=== PATIENT | male | born 1945 | race Caucasian/White ===

== ENCOUNTER 2023-10-24 10:21 | Outpatient (RCR) | payer OTHER, SELFPAY ==
[2023-10-24 10:40] LABS: % Basophils 1.3 % (0-2); % Eosinophils 3.6 % (0-6); % Immature Granulocytes 0.5 % (0-0.5); % Lymphocytes 7.9 % (20.5-51.1); % Monocytes 5.8 % (1.7-9.3); % Neutrophils 80.9 % (42.2-75.2); Absolute Basophils 0.2 10^3/uL (0-0.2); Absolute Eosinophils 0.4 10^3/uL (0-0.7); Absolute Immature Granulocytes 0.1 10^3/uL (0-0.05); Absolute Monocytes 0.7 10^3/uL (0.1-0.6); Hematocrit 50.6 % (39.0-52.0); Mean Corp Hgb Conc. 29.6 g/dL (33.0-37.0); Mean Corpuscular Hgb 22.5 pg (27.0-31.0); Mean Platelet Volume 10.6 fL (7.4-10.4); Platelet Count 470 10^3/uL (130-400); Red Blood Cell Count 6.66 10^6/uL (4.70-6.10); Red Cell Dist. Width 20.4 % (11.5-14.5); White Blood Cell Count 12.3 10^3/uL (4.8-10.8)
[2023-10-24 10:53] VITALS: BP 129/76
[2023-10-24 11:35] VITALS: BP 138/70
[2023-10-24 12:20] LABS: Iron 32 ug/dl (49-181)
[2023-10-24 12:31] LABS: Percent Saturation 8 % (20-50); Total Iron Binding Capacity 360 ug/dl (261-462)
== END 2023-10-25 09:36 | disposition home or self-care (01) ==
LOC: OID 10:21
PROVIDERS: ATTENDING PHYSICIAN Internal Medicine Hematology & Oncology; FAMILY PHYSICIAN Internal Medicine
DX: D45 Polycythemia vera (principal)
CPT/HCPCS: 36415; 82728; 83540; 83550; 85025

== ENCOUNTER 2024-06-19 10:55 | Outpatient (RCR) | payer OTHER, SELFPAY ==
[2024-06-18 09:51] LABS: % Eosinophils 2.7 % (0-6); % Immature Granulocytes 0.4 % (0-0.5); % Lymphocytes 8.5 % (20.5-51.1); % Monocytes 6.3 % (1.7-9.3); % Neutrophils 81.1 % (42.2-75.2); Absolute Basophils 0.1 10^3/uL (0-0.2); Absolute Eosinophils 0.3 10^3/uL (0-0.7); Absolute Lymphocytes 0.9 10^3/uL (1.2-3.4); Absolute Monocytes 0.7 10^3/uL (0.1-0.6); Absolute Neutrophils 8.6 10^3/uL (1.4-6.5); Hematocrit 55.2 % (39.0-52.0); Hemoglobin 16.1 g/dL (13.0-18.0); Mean Corp Hgb Conc. 29.2 g/dL (33.0-37.0); Mean Corpuscular Hgb 22.9 pg (27.0-31.0); Mean Corpuscular Volume 78.5 fL (80.0-94.0); Mean Platelet Volume 10.9 fL (7.4-10.4); Platelet Count 568 10^3/uL (130-400); Red Blood Cell Count 7.03 10^6/uL (4.70-6.10); Red Cell Dist. Width 19.7 % (11.5-14.5); White Blood Cell Count 10.6 10^3/uL (4.8-10.8)
[2024-06-18 10:51] LABS: Iron 37 ug/dl (49-181)
[2024-06-18 11:03] LABS: Percent Saturation 10 % (20-50); Total Iron Binding Capacity 356 ug/dl (261-462)
[2024-06-18 11:17] LABS: Ferritin 7.5 ng/ml (17.9-464.0)
[2024-06-19 11:19] VITALS: BP 128/77
[2024-06-19 11:51] VITALS: BP 146/87
== END 2024-06-20 08:48 | disposition home or self-care (01) ==
LOC: OID 10:55
PROVIDERS: ATTENDING PHYSICIAN Internal Medicine Hematology & Oncology; FAMILY PHYSICIAN Internal Medicine
DX: D47.2 Monoclonal gammopathy (principal); D45 Polycythemia vera
CPT/HCPCS: 36415; 82728; 83540; 83550; 85025; 99195

== ENCOUNTER → 2024-09-09 09:31 | Outpatient (REF) | payer OTHER, SELFPAY ==
[2024-09-09 10:20] LABS: % Basophils 1.2 % (0-2); % Eosinophils 1.7 % (0-6); % Lymphocytes 8.1 % (20.5-51.1); Absolute Basophils 0.1 10^3/uL (0-0.2); Absolute Eosinophils 0.2 10^3/uL (0-0.7); Absolute Immature Granulocytes 0.1 10^3/uL (0-0.05); Absolute Lymphocytes 0.8 10^3/uL (1.2-3.4); Absolute Monocytes 0.8 10^3/uL (0.1-0.6); Absolute Neutrophils 8.2 10^3/uL (1.4-6.5); Hematocrit 51.7 % (39.0-52.0); Hemoglobin 15.7 g/dL (13.0-18.0); Mean Corp Hgb Conc. 30.4 g/dL (33.0-37.0); Mean Corpuscular Hgb 26.2 pg (27.0-31.0); Mean Corpuscular Volume 86.3 fL (80.0-94.0); Mean Platelet Volume 10.1 fL (7.4-10.4); Nucleated Red Blood Cells % 0 % (-); Platelet Count 481 10^3/uL (130-400); Red Blood Cell Count 5.99 10^6/uL (4.70-6.10); Red Cell Dist. Width 24.3 % (11.5-14.5); White Blood Cell Count 10.2 10^3/uL (4.8-10.8)
[2024-09-09 10:52] LABS: ALT (SGPT) 15 U/L (0-50); AST (SGOT) 20 U/L (17-59); Albumin 4.4 g/dl (3.5-5.0); Alkaline Phosphatase 93 U/L (38-126); Blood Urea Nitrogen 16 mg/dl (9-20); Calcium 9.5 mg/dl (8.4-10.2); Carbon Dioxide 26 mmol/L (22-30); Chloride 101 mmol/L (98-107); Glucose 84 mg/dl (70-99); HDL Cholesterol 30 mg/dl; LDL Cholesterol, Calculated 31 mg/dl; Potassium 4.8 mmol/L (3.5-5.1); Sodium 140 mmol/L (135-145); Total Bilirubin 0.8 mg/dl (0.2-1.3); Total Cholesterol 82 mg/dl (50-199); Total Protein 6.7 g/dl (6.3-8.2); Triglyceride 107 mg/dl (10-149); Very Low Density Lipoprotein 21 mg/dl (0-30); eGFR > 60.00
[2024-09-09 10:53] LABS: Acanthocytes FEW; Anisocytosis 1+; Hypochromasia 1+; Normal RBC Morphology No; Ovalocytes 1+; Polychromasia 1+
[2024-09-09 11:18] LABS: TSH 5.51 uIU/ml (0.47-4.68)
[2024-09-11 00:39] LABS: PSA Total 0.9 ng/mL (0.0-4.0)
== END ==
LOC: REG 09:31
PROVIDERS: ATTENDING PHYSICIAN Internal Medicine
DX: R94.6 Abnormal results of thyroid function studies (principal); E78.5 Hyperlipidemia, unspecified; N40.1 Benign prostatic hyperplasia with lower urinary tract symptoms
CPT/HCPCS: 36415; 80053; 80061; 84153; 84154; 84443; 85025

== ENCOUNTER 2025-01-30 08:57 | Inpatient (IN) | payer OTHER, SELFPAY ==
[2025-01-28] VITALS (11 sets, daily range): BP systolic 117–145; BP diastolic 62–77; BMI 31.7
--- NOTE | 2025-01-28 12:37 | ED.GENMED ---
History of Present Illness
General
Chief Complaint: Weakness
Source: patient and spouse
Exam Limitations: none
Time Seen by Provider: 01/28/25 12:18
History of Present Illness
History of Present Illness:
79yoM with a history of prior CVA with residual R sided weakness, hypertension, hyperlipidemia, polycythemia vera, and obesity presenting with his for evaluation of weakness. Patient reports a gradual worsening of his weakness over the past
several weeks. Patient fell today due to his weakness. Both patient and deny any head strike or loss of consciousness. He was unable to get up after the fall and EMS was activated. reports that he was very shaky and felt warm this
morning. His urine also appears cloudy. He denies any fevers, chills, vomiting, diarrhea, chest pain, shortness of breath.
Past History
Past History
ED Past Medical History: Cancer (Basal cell skin cancer), CVA (with right sided weakness, Brace on the lower legs), HTN, Hypercholesterolemia, Psychiatric (Depression) and Other (Sleep apnea, PNA, UTI, Macular degeneration. Polycythemia Vera)
ED Past Surgical History: Tonsilectomy, Urological (TURP) and Other (Cataracts)
Social History
Tobacco: Former smoker
Alcohol: Daily (Scotch 1 glass)
Drug: None
Personal:
Living: with family
Employment: Retired
Family History
Family History: Other
Phy Exam
Physical Exam
Physical Exam:
Chronically ill appearing, non-toxic
General Physical Exam
General Presentation: no apparent distress
General Skin: warm and dry
General Habitus: normal
ENT Exam
ENT Exam: normocephalic
Cardiovascular Exam
Cardiovascular Exam: regular rate/rhythm
Pulmonary Exam
Pulmonary Exam: lungs clear, no respiratory distress, no rales, no crackles, no rhonchi and no wheezing
Gastrointestinal Exam
Gastrointestinal Exam: non tender, soft and non distended
Neurological Exam
Neurological Exam: alert
Xenia Coma Scale
Eye Opening: Spontaneous
Verbal Response: Oriented
Motor Response: Obeys Commands
GCS Total Score: 15
Skin Exam
Skin Exam: warm/dry and other (Fungal rash noted beneath breasts bilaterally)
Psychiatric Exam
Psychiatric Exam: normal mood/affect
Course
Orders/Labs/Results
Orders:
Orders
01/28/25 12:31
Electrocardiogram (*1) Urgent
Reason for Study: Bradycardia / Tachycardia
EKG- Treatment ONCE
01/28/25 12:32
Basic Metabolic Panel Urgent
Complete Blood Count/With Diff Urgent
Total CK [Creatine Phosphokinase] Urgent
Troponin I Urgent
01/28/25 12:36
CR Chest - 2 Views Urgent
Comment:
Reason For Exam: hypoxia
01/28/25 12:46
COVID-19 Antigen Urgent
Source: Nasal Swab
Influenza A+B Rapid Molecular Urgent
WILLIAM Source: Nasal Swab
Specimen Description:
01/28/25 14:10
LFT [Dzurd-Bgth-Pyqzbrd] Urgent
Potassium Urgent
01/28/25 14:19
0.9% Sodium Chloride 1000 ml [Nss] 1,000 ml IV BOLUS
01/28/25 15:19
Straight cath- Treatment ONCE
01/28/25 16:01
Urinalysis Reflex To Culture Urgent
Date Specimen was Collected: 01/28/25
Time Specimen was Collected: 12:31
Urine Microscopic Reflex Cult Urgent
Urine Culture Urgent
WILLIAM Source: U
Specimen Description:
Date Specimen was Collected: 01/28/25
Time Specimen was Collected: 12:31
01/28/25 16:25
Admit/Transfer Patient As Directed
Co-Sign Provider:
Level of Care: Observation services
Assign to:: Telemetry
Physician / Group: Hospitalist
Diagnosis: Weakness, Hypoxia
Reason for Telemetry: Other
Other Reason for Telemetry: HYpoxia
Date to Stop Telemetry: 01/30/25
Time to Stop Telemetry: 11:00
PRN Pain Medication Management As Directed
May give lesser potent ordered pain med per pt: Yes
preference::
Protocol:: Medication orders for pain may be administered in a
manner that supports deferring to patient preference
when the pt is:
- Requesting an ordered lesser potent pain medication.
Least to most potent pain medications are defined
as: acetaminophen < NSAID < tramadol < opioids
(morphine, oxycodone, hydromorphone).
- Requesting a lesser dose of the same medication IF
ORDERED.
- Requesting a less intrusive route of administration
if both routes are prescribed by the provider (PO <
IV).
01/28/25 16:36
CT Chest PE Study Urgent
Comment:
Reason For Exam: hypoxia
01/28/25 16:43
Code Status As Directed
Resuscitation Status: Do not resuscitate
Reached after discussion with pt or family/Healthcare POA: Yes
01/28/25 16:44
DNR Bracelet Application ONCE
01/28/25 16:45
Blood Culture Q30M
WILLIAM Source: Blood/Venous
Specimen Description:
01/28/25 16:46
CR Abdomen - 2 Views Routine
Comment:
Reason For Exam: change in bowel habits
01/28/25 17:15
Blood Culture Q30M
WILLIAM Source: Blood/Venous
Specimen Description:
01/30/25 11:00
DC Protocol for Telemetry ONCE
Abnormal Lab Results
01/28/25 01/28/25
12:32 16:01
WBC 15.4 H 10^3/uL
(4.8-10.8)
Hct 53.8 H %
(39.0-52.0)
MCV 97.6 H fL
(80.0-94.0)
MCH 31.4 H pg
(27.0-31.0)
MCHC 32.2 L g/dL
(33.0-37.0)
RDW 19.4 H %
(11.5-14.5)
Plt Count 420 H 10^3/uL
(130-400)
MPV 10.7 H fL
(7.4-10.4)
Abs Immat Gran (auto) 0.1 H 10^3/uL
(0-0.05)
Absolute Neuts (auto) 14.0 H 10^3/uL
(1.4-6.5)
Absolute Lymphs (auto) 0.4 L 10^3/uL
(1.2-3.4)
Absolute Monos (auto) 0.7 H 10^3/uL
(0.1-0.6)
Immature Gran % 0.8 H %
(0-0.5)
Neutrophils % 91.3 H %
(42.2-75.2)
Lymphocytes % 2.5 L %
(20.5-51.1)
Glucose 119 H mg/dl
(70-99)
Creatine Kinase 27 L U/L
(55-170)
Ur Occult Blood Reflex 4+ A
(Negative)
Urine Nitrite (Reflex) Positive A
(Negative)
Leukocyte Esterase Rfl 3+ A
(Negative)
Urine RBC 3-6 A /HPF
(0-2)
Urine WBC (Reflex) >100 A /HPF
(0-5)
Urine Bacteria (Reflex) Many A
(Negative)
Urine Albumin (Reflex) 2+ A
(Neg - Trace)
01/28/25 12:32
01/28/25 14:10
Vital Signs
Initial and Last Documented VS:
Initial Vital Signs
Temp Pulse Resp BP Pulse Ox
99.4 F 63 18 128/68 95
01/28/25 10:41 01/28/25 10:41 01/28/25 10:41 01/28/25 10:41 01/28/25 10:41
Last Documented Vital Signs
Temp Pulse Resp BP Pulse Ox
99.4 F 77 31 120/63 95
01/28/25 10:41 01/28/25 18:15 01/28/25 12:30 01/28/25 18:00 01/28/25 18:15
MDM/Problems Addressed
Differential Diagnosis Includes:
79yoM here with generalized weakness. Had a fall earlier today. Also reports feeling shaky with cloudy urine. Hx of CVA with R sided hemiparesis. Triage vital signs normal. He is chronically ill appearing but non-toxic. Differential diagnosis
includes but is not limited to: failure to thrive, UTI, dehydration, ambulatory dysfunction
Initial ED plan: Check cardiac labs, EKG, COVID/flu swab, UA, and CXR.
*Pulse Oximetry
SaO2: 91
Oxygen Mode of Delivery: Room air
Patient hypoxic: yes (88)
*EKG
Interpreted by ED Provider?: Yes
EKG Intrepretation Date: 01/28/25
Heart Rate: 101
Rate: tachycardiac
Rhythm: sinus and PAC's
[place]: normal axis
QRS Pattern: low voltage
Ischemia: no ischemia
*Critical Care Note
Total Time (30-74mins, 75-104mins- exclusive of procedures): Not Applicable
Update Note
Update Note:
Labs reveal a WBC of 15. Patient hypoxic during ED stay with oxygen saturations in the mid-high 80s. Patient placed on NC although he denies feeling dyspneic. CXR is clear. No ischemic changes on EKG and troponin WNL. High suspicion for UTI although
urinalysis is pending. Will admit for further evaluation.
ED Attending Note
-
Portions of this chart may have been created with voice recognition software.� Occasional wrong word or��sound alike� substitutions may have occurred due to the inherent limitations of voice recognition software.
Discharge Plan
Departure
Patient Disposition: Admit
Date of Disposition: 01/28/25
Time of Disposition: 14:20
Presentation/result/management discussed w/ accepting MD/DO: Hospitalist
Discharge Problem:
Acute hypoxic respiratory failure, Generalized weakness
Interventions
Interventions:
*Risk Screen - Suicide Last Done: 01/28/25 10:41
*General Assessment Last Done: 01/28/25 10:41
*Neglect/Abuse Screening Last Done: 01/28/25 10:41
*ED COVID-19 Vaccine History Last Done: 01/28/25 12:26
ED- Cardiac Assessment Last Done: 01/28/25 12:26
ED- Neurological Assessment Last Done: 01/28/25 12:26
ED- Pulmonary Assessment Last Done: 01/28/25 12:26
[2025-01-28 12:46] LABS: Hematocrit 53.8 % (39.0-52.0); Hemoglobin 17.3 g/dL (13.0-18.0); Mean Corp Hgb Conc. 32.2 g/dL (33.0-37.0); Mean Corpuscular Volume 97.6 fL (80.0-94.0); Nucleated Red Blood Cells % 0 % (-); Platelet Count 420 10^3/uL (130-400); Red Cell Dist. Width 19.4 % (11.5-14.5)
[2025-01-28 13:18] LABS: Blood Urea Nitrogen 16 mg/dl (9-20); Calcium 9.3 mg/dl (8.4-10.2); Carbon Dioxide 23 mmol/L (22-30); Chloride 107 mmol/L (98-107); Estimated Creatinine Clearance 76 ml/min; Glucose 119 mg/dl (70-99); Sodium 139 mmol/L (135-145); eGFR > 60.00
[2025-01-28 13:25] LABS: COVID-19 Antigen Negative (Negative)
[2025-01-28 13:25] LABS: Troponin I 0.026 ng/ml
[2025-01-28] MEDS: NSS 1000 IV (14:23)
[2025-01-28 15:00] LABS: ALT (SGPT) 16 U/L (0-50); AST (SGOT) 23 U/L (17-59); Albumin 3.8 g/dl (3.5-5.0); Alkaline Phosphatase 85 U/L (38-126); Potassium 4.6 mmol/L (3.5-5.1); Total Protein 6.4 g/dl (6.3-8.2)
--- NOTE | 2025-01-28 15:08 | HPS.HSE ---
Family Physician
-
Family Physician: Jaylyn Hernandez
Chief Complaint
-
Weakness
History of Present Illness
79-year-old male with generalized weakness. He has not walked for the past 1 year .He mostly sits in a recliner gets onto a wheelchair and goes to the bathroom with the help of his . She stated that he has had a few falls recently. Paramedics
were called and they picked him up. Today also same thing happened but he was very weak afterwards they had to call them back to bring him to the hospital. Patient also has a lot of fungal infection in the folds has off-and-on constipation and
diarrhea... He had a fever of 101 at home no chest pain. No diarrhea right now.
Medical History
Past Medical History
Past Medical History: Reports Other
Additional Past Medical History:
History of CVA, sleep apnea-CPAP intolerant, hypertension, hyperlipidemia, enlarged prostate, ambulatory dysfunction, arthritis, cataracts, hearing impairment, macular degeneration, polycythemia, depression
Past Surgical History: Reports Other
Additional Past Surgical History:
Tonsillectomy, TURP, cataract surgery, Mohs surgery head
Social History
Tobacco: Former Smoker
Alcohol: Daily (1 glass of scotch every day)
Drug: None
Personal:
Living: With Family
Family History
Family History: Not pertinent
Allergies / Home Medications
Allergies reflects when Allergies were last updated in [facility].
Home Medications with original date entered in [facility]
Allergy/Medication List:
Allergies
Allergy/AdvReac Type Severity Reaction Status Date / Time
Influenza Virus Vaccines Allergy Unknown Pharmacy Verified 01/28/25 10:45
to
Review,chills
and fever
lisinopril Allergy Unknown Verified 01/28/25 10:45
Home Medications
calcium polycarbophil 625 mg tablet (Fiber-Tabs) 625 mg PO BID Constipation 02/27/18
atorvastatin 40 mg tablet 40 mg PO HS High Cholesterol 07/01/18
docusate sodium 100 mg capsule 200 mg PO BID Constipation 09/17/19
hydroxyurea 500 mg capsule 1,000 mg PO HS Autoimmune Disorder 09/17/19
losartan 50 mg tablet 50 mg PO HS Blood Pressure 09/17/19
amlodipine 10 mg tablet 10 mg PO DAILY Blood Pressure 01/28/25
clopidogrel 75 mg tablet 75 mg PO DAILY Heart Disease/Condition 01/28/25
clotrimazole-betamethasone 1 %-0.05 % topical cream 1 applic topical DAILY under breasts,folds,groin 01/28/25
fluoxetine 20 mg capsule 20 mg PO DAILY Mental Health/Anxiety 01/28/25
Review of Systems
-
A 12 point ROS was completed and negative except as noted: Yes
Respiratory: Denies Cough or Trouble Breathing
Cardiac: Denies Chest Pain
Abdomen/GI: Reports Diarrhea and Constipated; Denies Bloody Stools
: Denies Dysuria
Skin: Reports Other (fungal rash folds)
Neurological: Reports Weakness (right side from CVA)
Physical Exam
Vital Signs
Vital Signs
Temp Pulse Resp BP Pulse Ox
99.4 F 95 31 122/64 90
01/28/25 10:41 01/28/25 14:30 01/28/25 12:30 01/28/25 14:00 01/28/25 14:30
Physical Exam
General: Comfortable and Conversant
Respiratory: Clear
Cardiac: S1/S2 and Regular Rhythm
GI: Soft, Non Tender and Normal Bowel Sounds
Skin: Rash (fungal rash axillary folds, breast folds, abdomen fold, inguinal area) and Ulcers (Recent Mohs surgery left posterior scalp)
Neuro: AO x 3; No Nonfocal/grossly intact (Right hemiplegia)
Psych: Calm
Laboratory Results
-
01/28/25 12:32
01/28/25 14:10
Laboratory Results
Total Bilirubin 1.1 mg/dl (0.2-1.3) 01/28/25 14:10
AST 23 U/L (17-59) 01/28/25 14:10
ALT 16 U/L (0-50) 01/28/25 14:10
Alkaline Phosphatase 85 U/L (38-126) 01/28/25 14:10
Troponin I 0.026 ng/ml 01/28/25 12:32
Data Reviewed
-
Diagnostic Radiology: Image Personally Visualized and interpreted (Chest x-ray-no acute changes)
Medical Tests (Nuc Med, Echo, EKG etc): Image Personally Visualized and interpreted (EKG-sinus tachycardia with PACs)
Impression/Plan
-
IMPRESSION/PLAN:
# Generalized weakness
Fever at home , here 99.4
Admit for observation
Check blood cultures
Urinalysis pending
Chest x-ray unremarkable
# Acute hypoxic respiratory insufficiency- Check CTA chest
# Fungal Infection skin folds- Local care and also add Diflucan ,doxycycline for secondary bacterial infection.
# Recent Mohs surgery left posterior scalp-wound care consult
# Hypertension-continue amlodipine, losartan
# History of stroke-continue Plavix, statin
# Enlarged prostate- watch for retention.
# Polycythemia vera last phlebotomy was in June 2024
# Depression-continue fluoxetine
# Sleep apnea-not on CPAP as outpatient
# Nonambulatory for past 1 year, mostly wheelchair-bound/recliner
# Obesity with a BMI of 31
# DVT prophylaxis-Lovenox
# CODE STATUS-patient wants to be DNR.
Discussed with ER
Discussed with at bedside
time over 75 min
[2025-01-28 17:53] LABS: Urine Character Cloudy (Clear)
[2025-01-28 18:06] LABS: Urine Squamous Cell 0-2 /LPF (Few)
[2025-01-28 18:07] LABS: Urine White Cell >100 /HPF (0-5)
--- NOTE | 2025-01-28 18:56 | W.PN.UPDATE ---
Update Note
Progress Note Update
UTI noted-add ceftriaxone
Discontinue doxycycline
Abdomen x-ray NAD
CT PE study NAD. No pneumonia, No PE
--- NOTE | 2025-01-28 20:30 | PTCARENOTE ---
Pt admitted from ED via stretcher. AAOx3. Pt afebrile, VSS. IV site C/D/I. Lungs clear, pt arrived on 2L O2. Pt oriented to room. Bed in lowest position and call neil within reach.
[2025-01-28] MEDS: FIBERCON 625 MG PO (21:01)
[2025-01-28] MEDS: DESENEX/MITRAZOL/ZEASORB 1 APPLIC TOPICAL (21:01)
[2025-01-28] MEDS: DIFLUCAN 100 MG PO (21:01)
[2025-01-28] MEDS: HYDREA 1000 MG PO (21:01)
[2025-01-28] MEDS: COLACE 200 MG PO (21:02)
[2025-01-28] MEDS: LOVENOX 40 MG SC (21:02)
[2025-01-28] MEDS: ROCEPHIN 2000 MG IV (21:03)
[2025-01-28] MEDS: LIPITOR 40 MG PO (21:03)
[2025-01-28] MEDS: COZAAR 50 MG PO (21:03)
[2025-01-28] MEDS: STERILE WATER FOR INJECTION 20 ML IV (21:04)
[2025-01-29 03:17] VITALS: BP 145/74
[2025-01-29 06:16] LABS: Hematocrit 48.6 % (39.0-52.0); Hemoglobin 15.8 g/dL (13.0-18.0); Mean Corp Hgb Conc. 32.5 g/dL (33.0-37.0); Mean Corpuscular Volume 97.8 fL (80.0-94.0); Platelet Count 328 10^3/uL (130-400); Red Cell Dist. Width 19.3 % (11.5-14.5)
[2025-01-29 06:42] LABS: Blood Urea Nitrogen 15 mg/dl (9-20); Calcium 8.7 mg/dl (8.4-10.2); Carbon Dioxide 21 mmol/L (22-30); Chloride 110 mmol/L (98-107); Estimated Creatinine Clearance 86 ml/min; Glucose 88 mg/dl (70-99); Magnesium 2.0 mg/dl (1.6-2.3); Potassium 4.5 mmol/L (3.5-5.1); Sodium 138 mmol/L (135-145); eGFR > 60.00
[2025-01-29 07:30] VITALS: BP 141/78
[2025-01-29 07:30] LABS: Vitamin B12 314 pg/ml (239-931)
[2025-01-29] MEDS: PROZAC 20 MG PO (08:51)
[2025-01-29] MEDS: PLAVIX 75 MG PO (08:53)
[2025-01-29] MEDS: DIFLUCAN 100 MG PO (08:53)
[2025-01-29] MEDS: COLACE 200 MG PO ×2 (08:53→19:27)
[2025-01-29] MEDS: FIBERCON 625 MG PO ×2 (08:53→19:27)
[2025-01-29] MEDS: DESENEX/MITRAZOL/ZEASORB 1 APPLIC TOPICAL ×2 (08:53→19:28)
--- NOTE | 2025-01-29 09:53 | WOUNDNOTE ---
[facility] RN note: Patient admitted with weakness
See H&P for complete history.
PMH: Stroke, sleep apnea, ex-smoker, difficulty with urination, UTI's ambulatory dysfunction.
Wound Location and type/assessment: Patient admitted with fungal appearing skin and MASD to groin, lower abdominal folds, chest and right arm. Right arm also with open blister from fall and large ecchymotic area. Left groin skin is superficially
open due to moisture and pressure from skin folds. Patient describes performing own hygiene daily. He sits in recline or wheel chair with cushion daily. He has right sided weakness. Heels with adhesive foam intact. Patient declined to have sacrum
assessed because he could not tolerate being turned at time of assessment.
Appetite: Good
Pressure redistribution devices in place: Will recommend static air overlay, continue off-loading of heels. Encourage frequent turning and repositioning.
Plan: All wounds cleaned with normal saline and Calazime and antifungal powder applied. Will recommend additional use of antifungal ointment for under breasts and groin/thigh fungal appearing skin. Will confirm with hospitalist. TT hospitalist to
report declining of turning. JONATHAN Burt made aware. Air cushion added to chair if patient transfers to chair today. Updated care plan and will follow as needed.
Note to case management of equipment requested for discharge:
Recommend follow up at wound care center upon discharge.
--- NOTE | 2025-01-29 11:04 | WOUNDNOTE ---
RIGHT AXILLA/UPPER ARM
--- NOTE | 2025-01-29 11:04 | WOUNDNOTE ---
RIGHT AXILLA/UPPER ARM
--- NOTE | 2025-01-29 11:05 | WOUNDNOTE ---
RIGHT AXILLA/UPPER ARM
--- NOTE | 2025-01-29 11:06 | W.PN.HOSP.TC ---
Today's Communication/Plan
-
Continue ceftriaxone
Wound care
PT OT evaluation
Patient may need rehab
Assessment / Plan
Assessment / Plan
CVS: S1-S2 normal
Chest: CTA B/L
Abdomen: Soft, NT / Bowel sounds present
Extremities: No edema
GLOVE [employer]: Right hemiplegia
Skin folds with fungal rash
# Generalized weakness
Fever 101 at home , here 99.4
Check blood cultures-pending
Treat UTI
Chest x-ray/CT chest unremarkable
# Acute hypoxic respiratory insufficiency-no PE or pneumonia on CTA. Change pulse ox to earlobe and wean oxygen as tolerated
# Fungal Infection skin folds- Local care and also Diflucan
# UTI-continue ceftriaxone-wait for cultures
# Recent Mohs surgery left posterior scalp-wound care consult
# Hypertension-continue amlodipine, losartan
# History of stroke -right hemiplegia- continue Plavix, statin
# Enlarged prostate- watch for retention. Patient has off-and-on retention. Start Flomax. Continue bladder scan.
# Polycythemia vera last phlebotomy was in June 2024
# Depression-continue fluoxetine
# Sleep apnea-not on CPAP as outpatient
# Nonambulatory for past 1 year, mostly wheelchair-bound/recliner
# Obesity with a BMI of 31
# DVT prophylaxis-Lovenox
# CODE STATUS-patient wants to be DNR.
D/W RN at bed side
D/W Wound care-patient was not agreeable initially when they came over to see. Patient is now agreeable
Pt and are OK with Rehab. They don't want Mino.
Discussed with in detail and updated
Anticipated Discharge: 24 - 48 hours
Subjective/Interval History
-
Date of Service: January 29, 2025
Objective Data
-
Labs:
Laboratory Results
01/29/25
05:43
WBC 9.6
Hgb 15.8
Hct 48.6
Plt Count 328 D
Sodium 138
Potassium 4.5
Chloride 110 H
Carbon Dioxide 21 L
BUN 15
Creatinine 0.8
Glucose 88
Calcium 8.7
Vital Signs:
Vital Signs
Temp Pulse Resp BP Pulse Ox
97.5 F 78 18 141/78 95
01/29/25 07:30 01/29/25 07:30 01/29/25 07:30 01/29/25 07:30 01/29/25 07:30
I&O
01/28/25 01/29/25 01/30/25
06:59 06:59 06:59
Intake Total 240 / 240
Output Total 700 / 700 600 / 600
Balance -460 / -460 -600 / -600
[2025-01-29 11:45] VITALS: BP 135/83
--- NOTE | 2025-01-29 13:01 | WOUNDNOTE ---
SACRUM/BUTTOCKS/BILATERAL POSTERIOR THIGHS
--- NOTE | 2025-01-29 13:02 | WOUNDNOTE ---
RIGHT POSTERIOR THIGH
--- NOTE | 2025-01-29 13:05 | WOUNDNOTE ---
WO RN NOTE: Returned to see patient to assess buttocks. Patient has wart appearing structure to buttocks. A scant open area is noted but otherwise skin is intact. TT Hospitalist to review pictures. Per chart review patient should follow up with
Dermatology as an outpatient. Flat fungal appearing rash also noted on posterior thighs. Staff can use antifungal ointment to posterior thighs and cover buttock wounds as need. JONATHAN Burt updated.
[2025-01-29 15:50] VITALS: BP 138/92
--- NOTE | 2025-01-29 15:50 | CM ---
CM met with Joel to complete IA.
He lives with his in an apartment with no entry steps.
Joel is known to [facility] in the past, uses a quad cane in the home and community.
Pt requesting transfer to SNF at discharge. Will need PT and OT evaluations for SNF transfer.
Plan: CM following for discharge to SNF per patient request.
PCP: Jaylyn Hernandez
Pharmacy: [facility]
[2025-01-29] MEDS: LOVENOX 40 MG SC (18:23)
[2025-01-29 19:16] VITALS: BP 133/78
[2025-01-29] MEDS: ANTIFUNGAL CLEAR 1 APPLIC TOPICAL (19:28)
[2025-01-29] MEDS: STERILE WATER FOR INJECTION 20 ML IV (19:31)
[2025-01-29] MEDS: ROCEPHIN 2000 MG IV (19:32)
[2025-01-29] MEDS: FLOMAX 0.4 MG PO (22:27)
[2025-01-29] MEDS: HYDREA 1000 MG PO (22:27)
[2025-01-29] MEDS: LIPITOR 40 MG PO (22:28)
[2025-01-29] MEDS: COZAAR 50 MG PO (22:28)
[2025-01-29 23:46] VITALS: BP 140/80
[2025-01-30] VITALS (7 sets, daily range): BP systolic 120–157; BP diastolic 72–84; PULSE 68; O2SAT 94
[2025-01-30 05:53] LABS: Hematocrit 49.9 % (39.0-52.0); Hemoglobin 15.9 g/dL (13.0-18.0); Mean Corp Hgb Conc. 31.9 g/dL (33.0-37.0); Mean Corpuscular Volume 97.3 fL (80.0-94.0); Platelet Count 353 10^3/uL (130-400); Red Cell Dist. Width 19.5 % (11.5-14.5)
[2025-01-30 06:22] LABS: Blood Urea Nitrogen 15 mg/dl (9-20); Calcium 8.7 mg/dl (8.4-10.2); Carbon Dioxide 22 mmol/L (22-30); Chloride 110 mmol/L (98-107); Estimated Creatinine Clearance 98 ml/min; Glucose 103 mg/dl (70-99); Magnesium 2.2 mg/dl (1.6-2.3); Potassium 4.2 mmol/L (3.5-5.1); Sodium 140 mmol/L (135-145); eGFR > 60.00
[2025-01-30] MEDS: NORVASC 10 MG PO (08:24)
[2025-01-30] MEDS: PLAVIX 75 MG PO (08:24)
[2025-01-30] MEDS: DIFLUCAN 100 MG PO (08:24)
[2025-01-30] MEDS: FIBERCON 625 MG PO ×2 (08:24→21:58)
[2025-01-30] MEDS: COLACE 200 MG PO ×2 (08:24→21:53)
[2025-01-30] MEDS: VITAMIN B-12 1000 MCG PO (08:25)
[2025-01-30] MEDS: PROZAC 20 MG PO (08:25)
[2025-01-30] MEDS: DESENEX/MITRAZOL/ZEASORB 1 APPLIC TOPICAL ×2 (08:28→22:00)
[2025-01-30] MEDS: ANTIFUNGAL CLEAR 1 APPLIC TOPICAL ×2 (08:29→22:01)
--- NOTE | 2025-01-30 08:56 | W.PN.HOSP.TC ---
Today's Communication/Plan
-
await UTI culture results
Assessment / Plan
Assessment / Plan
Assessment:
Urinary tract infection
- continue day 3 of Rocephin, pending urine culture
- blood cultures negative
Acute hypoxic respiratory insufficiency
- transient and now resolved
- no PE on CTA
Fungal Infection skin folds
MASD to groin, lower abdominal folds, chest and right arm
- continue Diflucan, day 10/13
- continue Miconazole
- continue wound care recs
Recent Mohs surgery left posterior scalp
- wound care following
Essential Hypertension
- continue amlodipine, losartan
History of stroke
- right hemiplegia- continue Plavix, statin
Enlarged prostate
- continue SC/BS protocol
- continue Flomax
- may need Johnson
Polycythemia vera last phlebotomy was in June 2024
Depression
- continue fluoxetine
Sleep apnea
- not on CPAP as outpatient
Nonambulatory for past 1 year, mostly wheelchair-bound/recliner
Obesity with a BMI of 31
Right arm also with open blister from fall and large ecchymotic area
Left groin skin is superficially open due to moisture and pressure from skin folds
Sacral lesions, possible warts given raised appearance
- OP Derm evaluation for biopsy
DVT ppx: Lovenox
Code: DNR/DNI - status changed 01/29
Anticipated Discharge: 24 - 48 hours
Subjective/Interval History
-
Date of Service: January 30, 2025
resting comfortably, no complaints at present
Objective Data
-
Labs:
Laboratory Results
01/30/25
05:28
WBC 9.1
Hgb 15.9
Hct 49.9
Plt Count 353
Sodium 140
Potassium 4.2
Chloride 110 H
Carbon Dioxide 22
BUN 15
Creatinine 0.7
Glucose 103 H
Calcium 8.7
Vital Signs:
Vital Signs
Temp Pulse Resp BP Pulse Ox
97.6 F 76 20 138/82 94
01/30/25 07:30 01/30/25 08:24 01/30/25 07:30 01/30/25 08:24 01/30/25 07:30
I&O
01/29/25 01/30/25 01/31/25
06:59 06:59 06:59
Intake Total 240 / 240 1080 / 1080
Output Total 700 / 700 1650 / 1650
Balance -460 / -460 -570 / -570
Physical Exam
-
General: No Apparent Distress
HEENT: Normocephalic and Atraumatic
Respiratory: Negative Wheezes
Cardiac: Regular Rhythm and S1/S2
GI: Soft
Skin: Other (fungal rash to both groin folds)
Neuro: AO x 3 and Other (R sided hemiplegia)
Psych: Calm
Data Reviewed
-
Total Time Spent with Patient (in minutes): 42
Labs: Labs Reviewed by me
--- NOTE | 2025-01-30 16:17 | WOUNDNOTE ---
WOC RN NOTE: Confirmed that patient is on a properly inflated static air overlay.
--- NOTE | 2025-01-30 17:01 | CM ---
Addendum entered by Anjali Renner 01/30/25 17:22:
Auth request sent via [facility] - certified in total; transfer to [facility] tomorrow. Need to discuss with patient due to late hour of finishing authorization. Will need transport arranged. Auth on my desk.
Original Note:
Referrals sent to [facility], [facility], [facility]
[2025-01-30] MEDS: LOVENOX 40 MG SC (17:28)
[2025-01-30] MEDS: ROCEPHIN 2000 MG IV (21:51)
[2025-01-30] MEDS: STERILE WATER FOR INJECTION 20 ML IV (21:51)
[2025-01-30] MEDS: LIPITOR 40 MG PO (21:54)
[2025-01-30] MEDS: HYDREA 1000 MG PO (21:54)
[2025-01-30] MEDS: FLOMAX 0.4 MG PO (21:54)
[2025-01-30] MEDS: COZAAR 50 MG PO (21:58)
[2025-01-31 03:24] VITALS: BP 133/76
[2025-01-31 07:00] VITALS: BP 127/81
[2025-01-31 08:17] LABS: Hematocrit 50.0 % (39.0-52.0); Hemoglobin 16.3 g/dL (13.0-18.0); Mean Corp Hgb Conc. 32.6 g/dL (33.0-37.0); Mean Corpuscular Volume 96.9 fL (80.0-94.0); Platelet Count 345 10^3/uL (130-400); Red Cell Dist. Width 18.9 % (11.5-14.5)
[2025-01-31 08:37] LABS: Blood Urea Nitrogen 14 mg/dl (9-20); Calcium 8.6 mg/dl (8.4-10.2); Carbon Dioxide 23 mmol/L (22-30); Chloride 110 mmol/L (98-107); Estimated Creatinine Clearance 115 ml/min; Glucose 99 mg/dl (70-99); Potassium 4.4 mmol/L (3.5-5.1); Sodium 141 mmol/L (135-145); eGFR > 60.00
--- NOTE | 2025-01-31 10:00 | CM ---
authorization obtained for [facility] SNF from Nohemy
per hospitalist not ready today
Auth appproval certification #: [id number]
start date 01/31/25, NRD 02/06/25
fax updates to [phone]
Ofelia has been updated & has auth information
PLAN: [facility], tentative tomorrow
Report #: [phone]
Fax #: [phone]
--- NOTE | 2025-01-31 10:05 | W.PN.HOSP.TC ---
Today's Communication/Plan
-
await urine culture, continue Abx
if ongoing urinary retention, might need Johnson
Dc planning to SNF
Assessment / Plan
Assessment / Plan
Assessment:
Urinary tract infection
- continue day 4 of Rocephin, pending urine culture ID/sensitivities
- blood cultures negative
Acute hypoxic respiratory insufficiency
- transient and now resolved
- no PE on CTA
Fungal Infection skin folds
MASD to groin, lower abdominal folds, chest and right arm
- continue Diflucan, day 11/13
- continue Miconazole
- continue wound care recs
Recent Mohs surgery left posterior scalp
- wound care following
Essential Hypertension
- continue amlodipine, losartan
History of stroke
- right hemiplegia- continue Plavix, statin
Enlarged prostate
- continue SC/BS protocol
- continue Flomax
- may need Johnson
Polycythemia vera last phlebotomy was in June 2024
Depression
- continue fluoxetine
Sleep apnea
- not on CPAP as outpatient
Nonambulatory for past 1 year, mostly wheelchair-bound/recliner
Obesity with a BMI of 31
Right arm also with open blister from fall and large ecchymotic area
Left groin skin is superficially open due to moisture and pressure from skin folds
Sacral lesions, possible warts given raised appearance
- OP Derm evaluation for biopsy
DVT ppx: Lovenox
Code: DNR/DNI - status changed 01/29
Anticipated Discharge: 24 - 48 hours
Subjective/Interval History
-
Date of Service: January 31, 2025
resting comfortably, no complaints
Objective Data
-
Labs:
Laboratory Results
01/31/25
07:02
WBC 8.3
Hgb 16.3
Hct 50.0
Plt Count 345
Sodium 141
Potassium 4.4
Chloride 110 H
Carbon Dioxide 23
BUN 14
Creatinine 0.6 L
Glucose 99
Calcium 8.6
Vital Signs:
Vital Signs
Temp Pulse Resp BP Pulse Ox
98.6 F 76 20 127/81 96
01/31/25 07:00 01/31/25 07:00 01/31/25 07:00 01/31/25 07:00 01/31/25 07:00
I&O
01/30/25 01/31/25 02/01/25
06:59 06:59 06:59
Intake Total 1080 / 1080
Output Total 1650 / 1650 1350 / 1350
Balance -570 / -570 -1350 / -1350
Physical Exam
-
General: No Apparent Distress
HEENT: Normocephalic and Atraumatic
Respiratory: Negative Wheezes
Cardiac: Regular Rhythm and S1/S2
GI: Soft
Musculoskeletal: No Edema
Neuro: AO x 3 and Other (R sided hemiplegia)
Hematologic / Lymphatic: No Lymphadenopathy
Psych: Calm
Data Reviewed
-
Total Time Spent with Patient (in minutes): 41
Labs: Labs Reviewed by me
[2025-01-31] MEDS: VITAMIN B-12 1000 MCG PO (10:15)
[2025-01-31] MEDS: NORVASC 10 MG PO (10:15)
[2025-01-31] MEDS: PLAVIX 75 MG PO (10:15)
[2025-01-31] MEDS: COLACE 200 MG PO ×2 (10:15→19:44)
[2025-01-31] MEDS: DIFLUCAN 100 MG PO (10:15)
[2025-01-31] MEDS: FIBERCON 625 MG PO ×2 (10:17→19:44)
[2025-01-31] MEDS: PROZAC 20 MG PO (10:17)
[2025-01-31] MEDS: DESENEX/MITRAZOL/ZEASORB 1 APPLIC TOPICAL ×2 (10:17→19:45)
[2025-01-31] MEDS: ANTIFUNGAL CLEAR 1 APPLIC TOPICAL ×2 (10:20→19:48)
[2025-01-31 15:00] VITALS: BP 145/78
[2025-01-31] MEDS: LOVENOX 40 MG SC (17:52)
[2025-01-31] MEDS: STERILE WATER FOR INJECTION 10 ML IV (17:52)
[2025-01-31] MEDS: FORTAZ 2000 MG IV (17:52)
[2025-01-31] MEDS: STERILE WATER FOR INJECTION IV (19:40)
[2025-01-31] MEDS: HYDREA 1000 MG PO (22:48)
[2025-01-31] MEDS: LIPITOR 40 MG PO (22:48)
[2025-01-31] MEDS: FLOMAX 0.4 MG PO (22:48)
[2025-01-31] MEDS: COZAAR 50 MG PO (22:58)
[2025-02-01] MEDS: FLUSH (NSS) 2 FLUSH IV (01:41)
[2025-02-01] MEDS: FORTAZ 2000 MG IV ×3 (01:41→17:37)
[2025-02-01] MEDS: STERILE WATER FOR INJECTION 10 ML IV ×3 (01:41→17:37)
[2025-02-01 06:03] LABS: Hematocrit 49.4 % (39.0-52.0); Hemoglobin 16.1 g/dL (13.0-18.0); Mean Corp Hgb Conc. 32.6 g/dL (33.0-37.0); Mean Corpuscular Volume 97.8 fL (80.0-94.0); Platelet Count 348 10^3/uL (130-400); Red Cell Dist. Width 19.1 % (11.5-14.5)
[2025-02-01 06:24] LABS: Blood Urea Nitrogen 14 mg/dl (9-20); Calcium 8.7 mg/dl (8.4-10.2); Carbon Dioxide 22 mmol/L (22-30); Chloride 109 mmol/L (98-107); Estimated Creatinine Clearance 98 ml/min; Glucose 89 mg/dl (70-99); Potassium 4.1 mmol/L (3.5-5.1); Sodium 140 mmol/L (135-145); eGFR > 60.00
[2025-02-01 07:00] VITALS: BP 130/72
[2025-02-01] MEDS: NORVASC 10 MG PO (08:26)
[2025-02-01] MEDS: FIBERCON 625 MG PO ×2 (08:26→21:54)
[2025-02-01] MEDS: PLAVIX 75 MG PO (08:26)
[2025-02-01] MEDS: COLACE 200 MG PO ×2 (08:26→21:52)
[2025-02-01] MEDS: DIFLUCAN 100 MG PO (08:28)
[2025-02-01] MEDS: VITAMIN B-12 1000 MCG PO (08:29)
[2025-02-01] MEDS: DESENEX/MITRAZOL/ZEASORB 1 APPLIC TOPICAL ×2 (08:30→21:54)
[2025-02-01] MEDS: ANTIFUNGAL CLEAR 1 APPLIC TOPICAL ×2 (08:31→21:53)
[2025-02-01] MEDS: PROZAC 20 MG PO (09:59)
--- NOTE | 2025-02-01 10:10 | W.PN.HOSP.TC ---
Today's Communication/Plan
-
watch for Johnson
await final cultures, continue Fortaz for now. obtain EKG for QTc assessment.
DC Planning; possible today pending above.
Assessment / Plan
Assessment / Plan
Assessment:
pseudomonas Urinary tract infection
- continue Ceftazidime, day 2, pending urine culture ID/sensitivities
- blood cultures negative
Acute hypoxic respiratory insufficiency
- transient and now resolved
- no PE on CTA
Fungal Infection skin folds
MASD to groin, lower abdominal folds, chest and right arm
- continue Diflucan, day 12/13
- continue Miconazole
- continue wound care recs
Recent Mohs surgery left posterior scalp
- wound care following
Essential Hypertension
- continue amlodipine, losartan
History of stroke
- right hemiplegia- continue Plavix, statin
Enlarged prostate
- continue SC/BS protocol
- continue Flomax
- may need Johnson
Polycythemia vera last phlebotomy was in June 2024
Depression
- continue fluoxetine
Sleep apnea
- not on CPAP as outpatient
Nonambulatory for past 1 year, mostly wheelchair-bound/recliner
Obesity with a BMI of 31
Right arm also with open blister from fall and large ecchymotic area
Left groin skin is superficially open due to moisture and pressure from skin folds
Sacral lesions, possible warts given raised appearance
- OP Derm evaluation for biopsy
DVT ppx: Lovenox
Code: DNR/DNI - status changed 01/29
Anticipated Discharge: Within 24 hours
Subjective/Interval History
-
Date of Service: February 01, 2025
requiring multiple straight caths in past 24 hours - understands if still ongoing retention will need a Johnson
denies any other complaints
Objective Data
-
Labs:
Laboratory Results
02/01/25
04:37
WBC 7.9
Hgb 16.1
Hct 49.4
Plt Count 348
Sodium 140
Potassium 4.1
Chloride 109 H
Carbon Dioxide 22
BUN 14
Creatinine 0.7
Glucose 89
Calcium 8.7
Vital Signs:
Vital Signs
Temp Pulse Resp BP Pulse Ox
98.5 F 64 18 130/72 97
02/01/25 07:00 02/01/25 07:00 02/01/25 07:00 02/01/25 07:00 02/01/25 07:00
I&O
01/31/25 02/01/25 02/02/25
06:59 06:59 06:59
Intake Total 1440 / 1440
Output Total 1350 / 1350 1030 / 1030
Balance -1350 / -1350 410 / 410
Physical Exam
-
General: No Apparent Distress
HEENT: Normocephalic and Atraumatic
Respiratory: Negative Wheezes
Cardiac: Regular Rhythm and S1/S2
GI: Soft and Nontender
Musculoskeletal: No Edema
Neuro: AO x 3
Psych: Calm
Data Reviewed
-
Total Time Spent with Patient (in minutes): 45
Labs: Labs Reviewed by me
--- NOTE | 2025-02-01 10:12 | CM ---
Spoke with patient regarding [facility] & AUTH obtained from [employer] - patient agreeable
IMM explained & signed. In chart.
Notified [facility] liaison [facility]
Auth appproval certification #: [id number]
start date 01/31/25, NRD 02/06/25
fax updates to [phone]
[facility] has been updated & has auth information
PLAN: [facility]
Report #: [phone]
Fax #: [phone]
[2025-02-01 15:00] VITALS: BP 158/74
[2025-02-01] MEDS: LOVENOX 40 MG SC (17:37)
[2025-02-01] MEDS: STERILE WATER FOR INJECTION IV (20:47)
[2025-02-01] MEDS: COZAAR 50 MG PO (21:56)
[2025-02-01] MEDS: HYDREA 1000 MG PO (22:08)
[2025-02-01] MEDS: LIPITOR 40 MG PO (22:08)
[2025-02-01] MEDS: FLOMAX 0.4 MG PO (22:08)
[2025-02-01 23:00] VITALS: BP 139/74
[2025-02-02] MEDS: STERILE WATER FOR INJECTION 10 ML IV ×3 (02:10→18:08)
[2025-02-02] MEDS: FORTAZ 2000 MG IV ×3 (02:10→18:08)
[2025-02-02 07:00] VITALS: BP 148/72
[2025-02-02 07:07] LABS: Hematocrit 50.9 % (39.0-52.0); Hemoglobin 16.3 g/dL (13.0-18.0); Mean Corp Hgb Conc. 32.0 g/dL (33.0-37.0); Mean Corpuscular Volume 97.9 fL (80.0-94.0); Platelet Count 380 10^3/uL (130-400); Red Cell Dist. Width 19.1 % (11.5-14.5)
[2025-02-02 07:46] LABS: Blood Urea Nitrogen 15 mg/dl (9-20); Calcium 9.4 mg/dl (8.4-10.2); Carbon Dioxide 22 mmol/L (22-30); Chloride 109 mmol/L (98-107); Estimated Creatinine Clearance 98 ml/min; Glucose 93 mg/dl (70-99); Potassium 4.2 mmol/L (3.5-5.1); Sodium 141 mmol/L (135-145); eGFR > 60.00
[2025-02-02] MEDS: PLAVIX 75 MG PO (08:53)
[2025-02-02] MEDS: PROZAC 20 MG PO (08:54)
[2025-02-02] MEDS: COLACE 200 MG PO ×2 (08:54→22:24)
[2025-02-02] MEDS: DESENEX/MITRAZOL/ZEASORB 1 APPLIC TOPICAL ×2 (08:54→22:28)
[2025-02-02] MEDS: FIBERCON 625 MG PO ×2 (08:54→22:25)
[2025-02-02] MEDS: NORVASC 10 MG PO (08:54)
[2025-02-02] MEDS: DIFLUCAN 100 MG PO (08:54)
[2025-02-02] MEDS: VITAMIN B-12 1000 MCG PO (08:54)
[2025-02-02] MEDS: ANTIFUNGAL CLEAR 1 APPLIC TOPICAL ×2 (08:55→22:24)
[2025-02-02] MEDS: FLUSH (NSS) 2 FLUSH IV (09:58)
--- NOTE | 2025-02-02 10:28 | W.PN.HOSP.TC ---
Today's Communication/Plan
-
continue IV Fortaz
Arrangements for SNF
Assessment / Plan
Assessment / Plan
Assessment:
pseudomonas Urinary tract infection (2 strains)
- continue Ceftazidime, day 3, pending urine culture ID/sensitivities
- blood cultures negative
Acute hypoxic respiratory insufficiency
- transient and now resolved
- no PE on CTA
Fungal Infection skin folds
MASD to groin, lower abdominal folds, chest and right arm
- continue Diflucan, day 01/13
- continue Miconazole
- continue wound care recs
Recent Mohs surgery left posterior scalp
- wound care following
Essential Hypertension
- continue amlodipine, losartan
History of stroke
- right hemiplegia - continue Plavix, statin
Enlarged prostate
- s/p Johnson placement 02/01
- continue Flomax
Polycythemia vera last phlebotomy was in June 2024
Depression
- continue fluoxetine
Sleep apnea
- not on CPAP as outpatient
Nonambulatory for past 1 year, mostly wheelchair-bound/recliner
Obesity with a BMI of 31
Right arm also with open blister from fall and large ecchymotic area
Left groin skin is superficially open due to moisture and pressure from skin folds
Sacral lesions, possible warts given raised appearance
- OP Derm evaluation for biopsy
DVT ppx: Lovenox
Code: DNR/DNI - status changed 01/29
Anticipated Discharge: Within 24 hours
Subjective/Interval History
-
Date of Service: February 02, 2025
resting comfortably, no complaints at present
Objective Data
-
Labs:
Laboratory Results
02/02/25
06:28
WBC 7.9
Hgb 16.3
Hct 50.9
Plt Count 380
Sodium 141
Potassium 4.2
Chloride 109 H
Carbon Dioxide 22
BUN 15
Creatinine 0.7
Glucose 93
Calcium 9.4
Vital Signs:
Vital Signs
Temp Pulse Resp BP Pulse Ox
97.8 F 75 17 148/72 95
02/02/25 07:00 02/02/25 08:54 02/02/25 07:00 02/02/25 08:54 02/02/25 07:00
I&O
02/01/25 02/02/25 02/03/25
06:59 06:59 06:59
Intake Total 1440 / 1440 1620 / 1620
Output Total 1030 / 1030 1675 / 1675
Balance 410 / 410 -55 / -55
Physical Exam
-
General: No Apparent Distress
HEENT: Normocephalic and Atraumatic
Respiratory: Negative Wheezes
Cardiac: Regular Rhythm and S1/S2
GI: Soft
Genito-urinary: No Costovertebral Tender
Neuro: AO x 3
Psych: Calm
Data Reviewed
-
Total Time Spent with Patient (in minutes): 42
Labs: Labs Reviewed by me
--- NOTE | 2025-02-02 12:38 | CON.ID ---
Consultation
-
Date/Time Consultation Requested: February 02, 2025 1044
Date/Time Consultation Performed: February 02, 2025 1240
Requesting Provider: Dr. Umer Garvey
Performing Provider: Dr. Kristina Carrillo
Reason for Consultation: Pseudomonas UTI, need for IV antibiotic
Chief Complaint / Past History
Chief Complaint
Weakness
History of Present Illness
79-year-old male with history of CVA with right hemiplegia who presented to the hospital on January 28 due to weakness and fall. Patient reports he was not feeling well that day. He fell and was not able to get up. EMS came by and lifted him up back
onto his recliner. However he continued to feel unwell and decided he should be brought to the ER. Also reportedly had fever at home. He had chills. In the ER white count 15. O2 sat slightly low. Chest CT unremarkable. Urine analysis positive
nitrite, leukocyte esterase, more than 100 white blood cells. Patient noted to be in urine retention requiring Johnson placement. Initially he was on ceftriaxone then changed to ceftazidime. Patient reports he is feeling better today. He denied
dysuria or urgency at home. He does have BPH. No flank pain. No further chills. Denies cough.
Past History
Additional Past Medical History:
Hypertension
HLD
CVA, R hemiplegia
Polycythemia
BPH
Amatory dysfunction
Sleep apnea
Depression
TURP
Mohs surgery on scalp
Allergy History:
Influenza Virus Vaccines Allergy (Unknown, Verified 01/28/25 10:45)
Pharmacy to Review,chills and fever
lisinopril Allergy (Verified 01/28/25 10:45)
Unknown
Medications Reviewed: Yes
Current Antibiotics:
Ceftazidime day 3
Social History
Tobacco: Former Smoker
Alcohol: Daily (1 scotch per day)
Drug: None
Personal:
Family History
Family History: Not Pertinent
Review of Systems
Review of Systems
HEENT: Negative Sinus Problems or Headache
Cardiovascular: Negative Chest Pain or Dyspnea
Respiratory: Negative Dyspnea or Cough
Gasteroenterology: Negative Nausea, Vomiting or Diarrhea
Genital / Urological: Negative Dysuria or Flank Pain
Endocrine: Weakness
Neurological: Negative Dizziness
All systems: All other systems were reviewed and were negative
Vital Signs
Temp Pulse Resp BP Pulse Ox
97.8 F 75 17 148/72 95
02/02/25 07:00 02/02/25 08:54 02/02/25 07:00 02/02/25 08:54 02/02/25 07:00
Physical Exam
Physical Exam
Constitutional: No Acute Distress and Comfortable
Eyes: No Conjunctival Hemorrhage and Sclera Anicteric
Cardiovascular: Regular Rate and Irregular Rate
Pulmonary: Clear
Gastrointestinal: Soft, Non Tender, Non Distended and Normal Bowel Sounds
Genito-Urinary: Negative CVA Tenderness
Extremities: Negative Edema
Wound: Other (Reviewed wound photos: Right axilla, bilateral breast folds, bilateral inguinal area with scaly erythema.)
Lab / Diagnostic Study Results
02/02/25 06:28
02/02/25 06:28
Abs Immat Gran (auto) 0.1 10^3/uL (0-0.05) H 01/28/25 12:32
Absolute Neuts (auto) 14.0 10^3/uL (1.4-6.5) H 01/28/25 12:32
Absolute Lymphs (auto) 0.4 10^3/uL (1.2-3.4) L 01/28/25 12:32
Absolute Monos (auto) 0.7 10^3/uL (0.1-0.6) H 01/28/25 12:32
Absolute Basos (auto) 0.1 10^3/uL (0-0.2) 01/28/25 12:32
Immature Gran % 0.8 % (0-0.5) H 01/28/25 12:32
Neutrophils % 91.3 % (42.2-75.2) H 01/28/25 12:32
Lymphocytes % 2.5 % (20.5-51.1) L 01/28/25 12:32
Monocytes % 4.6 % (1.7-9.3) 01/28/25 12:32
Eosinophils % 0.1 % (0-6) 01/28/25 12:32
Basophils % 0.7 % (0-2) 01/28/25 12:32
Ur Squamous Epith Cells 0-2 /LPF (Few) 01/28/25 16:01
Microbiology Results
Micro:
01/28/25 16:01 Urine Culture - Final
Urine Pseudomonas aeruginosa
Pseudomonas aeruginosa#2
01/29/25 01:55 Blood Culture - Preliminary
Blood/Venous No Growth in 4 days- Final report to follow
01/28/25 23:35 Blood Culture - Preliminary
Blood/Venous No Growth in 4 days- Final report to follow
01/28/25 21:45 MRSA Screen - Final
Nose No Methicillin Resistant Staphylococcus aureus isolated.
01/28/25 12:46 Influenza Types A & B ([facility]) - Final
Nasal Swab Negative for Influenza A & B, NAAT
Negative results must be combined with clinical observations
and patient history.
Nucleic Acid Amplification test (NAAT)performed on the
[employer] platform.
01/28/[address]: No evidence of pulmonary embolism. No significant acute abnormality identified in the chest, as described above.
Assessment / Plan
#Pseudomonas urinary tract infection
# Urinary retention requiring Johnson placement
# Leukocytosis resolved
- Blood cultures negative
- Continue ceftazidime 2 g IV every 8 hours (d3) through 02/09/25
Home infusion she submitted to case preparer and liner
Ordered midline
# Intertriginous candidiasis
-Continue fluconazole 10mg po daily through 02/09/25.
- Continue local wound care.
[2025-02-02 15:00] VITALS: BP 123/64
--- NOTE | 2025-02-02 15:58 | PN.CDI ---
CDI
- -
CDI:
Physician Documentation Request
Admit Date: 01/30/25 08:57
Dear Doctor Guru,
Please review the following and provide your response in the progress notes.
Clinical Indicators:
Pt admitted with UTI
Documented per H&P,' He had a fever of 101 at home..'
On admission WBC 15.4, HR 115, Respirations 32
Please clarify which of the following most accurately describes the status of the patient's infection:
Sepsis-POA
- Systemic manifestations of infection, with 2 or more SIRS criteria which include:
- Fever >100.9 degrees F or hypothermia < 96.8 degrees F
- Leukocytosis - WBC > 12,000 or leukopenia - WBC < 4,000 or > 10% bands
- Tachycardia > 90 beats per minute
- Tachypnea - RR > 20 breaths per minute or PaCO2 , 32mmHg
Source: Merck Manual 2013
UTI Only, Without Systemic Illness
Other
Use of terms such as suspected, likely, concern for, or probable (associated with a specific diagnosis that is being evaluated, monitored, or treated as if it exists) are acceptable and can be coded in the inpatient setting, when documented at the
time of discharge.
Thank you,
Ade Kumar RN
CDI Specialist
[place] [facility]
Please use your independent medical judgment in providing your response.
[2025-02-02] MEDS: LOVENOX 40 MG SC (17:37)
[2025-02-02] MEDS: STERILE WATER FOR INJECTION IV (19:51)
[2025-02-02] MEDS: LIPITOR 40 MG PO (22:31)
[2025-02-02] MEDS: HYDREA 1000 MG PO (22:32)
[2025-02-02] MEDS: FLOMAX 0.4 MG PO (22:33)
[2025-02-02] MEDS: COZAAR 50 MG PO (22:53)
[2025-02-02 23:00] VITALS: BP 128/66
[2025-02-03] MEDS: STERILE WATER FOR INJECTION 10 ML IV ×2 (02:10→09:41)
[2025-02-03] MEDS: FORTAZ 2000 MG IV ×2 (02:10→09:41)
[2025-02-03 04:47] LABS: Hematocrit 48.6 % (39.0-52.0); Hemoglobin 16.0 g/dL (13.0-18.0); Mean Corp Hgb Conc. 32.9 g/dL (33.0-37.0); Mean Corpuscular Volume 97.6 fL (80.0-94.0); Platelet Count 387 10^3/uL (130-400); Red Cell Dist. Width 18.9 % (11.5-14.5)
[2025-02-03 05:13] LABS: Blood Urea Nitrogen 17 mg/dl (9-20); Calcium 9.4 mg/dl (8.4-10.2); Carbon Dioxide 25 mmol/L (22-30); Chloride 108 mmol/L (98-107); Estimated Creatinine Clearance 86 ml/min; Glucose 96 mg/dl (70-99); Potassium 4.1 mmol/L (3.5-5.1); Sodium 139 mmol/L (135-145); eGFR > 60.00
[2025-02-03 07:00] VITALS: BP 145/69
--- NOTE | 2025-02-03 08:39 | W.PN.HOSP.TC ---
Today's Communication/Plan
-
dc to SNF today if arrangements made
Assessment / Plan
Assessment / Plan
Assessment:
Sepsis POA (fever, tachycardia)
pseudomonas Urinary tract infection (2 strains)
- continue Ceftazidime, day 11/13; appreciate ID assistance
- blood cultures negative
Acute hypoxic respiratory insufficiency
- transient and now resolved
- no PE on CTA
Fungal Infection skin folds
MASD to groin, lower abdominal folds, chest and right arm
- continue Diflucan, day 02/16
- continue Miconazole
- continue wound care recs
Recent Mohs surgery left posterior scalp
- wound care following
Essential Hypertension
- continue amlodipine, losartan
History of stroke
- right hemiplegia - continue Plavix, statin
Enlarged prostate
- s/p Johnson placement 02/01
- continue Flomax
- OP Urology f/u
Polycythemia vera last phlebotomy was in June 2024
Depression
- continue fluoxetine
Sleep apnea
- not on CPAP as outpatient
Nonambulatory for past 1 year, mostly wheelchair-bound/recliner
Obesity with a BMI of 31
Right arm also with open blister from fall and large ecchymotic area
Left groin skin is superficially open due to moisture and pressure from skin folds
Sacral lesions, possible warts given raised appearance
- OP Derm evaluation for biopsy
DVT ppx: Lovenox
Code: DNR/DNI - status changed 01/29
More than 30 minutes spent in discharge including
Final examination of the patient
Summarizing hospital stay
Instructions for continuing care to all relevant caregivers
Preparation of discharge records, prescriptions, and referral forms
Total time spent (in minutes): 41
Anticipated Discharge: Today
Subjective/Interval History
-
Date of Service: February 03, 2025
resting comfortably, no complaints
Objective Data
-
Labs:
Laboratory Results
02/03/25
04:26
WBC 9.0
Hgb 16.0
Hct 48.6
Plt Count 387
Sodium 139
Potassium 4.1
Chloride 108 H
Carbon Dioxide 25
BUN 17
Creatinine 0.8
Glucose 96
Calcium 9.4
Vital Signs:
Vital Signs
Temp Pulse Resp BP Pulse Ox
98.2 F 74 18 145/69 92
02/03/25 07:00 02/03/25 07:00 02/03/25 07:00 02/03/25 07:00 02/03/25 07:00
I&O
02/02/25 02/03/25 02/04/25
06:59 06:59 06:59
Intake Total 1620 / 1620 780 / 780
Output Total 1675 / 1675 1300 / 1300
Balance -55 / -55 -520 / -520
Physical Exam
-
General: No Apparent Distress
HEENT: Normocephalic and Atraumatic
Respiratory: Negative Wheezes
Cardiac: Regular Rhythm and S1/S2
GI: Soft
Genito-urinary: No Costovertebral Tender
Skin: Other (LUE midline)
Neuro: AO x 3
Psych: Calm
Data Reviewed
-
Total Time Spent with Patient (in minutes): 42
Labs: Labs Reviewed by me
[2025-02-03] MEDS: VITAMIN B-12 1000 MCG PO (08:42)
[2025-02-03] MEDS: ANTIFUNGAL CLEAR 1 APPLIC TOPICAL (08:42)
[2025-02-03] MEDS: FIBERCON 625 MG PO (08:42)
[2025-02-03] MEDS: NORVASC 10 MG PO (08:42)
[2025-02-03] MEDS: DESENEX/MITRAZOL/ZEASORB 1 APPLIC TOPICAL (08:42)
[2025-02-03] MEDS: PROZAC 20 MG PO (08:42)
[2025-02-03] MEDS: PLAVIX 75 MG PO (08:42)
[2025-02-03] MEDS: DIFLUCAN 100 MG PO (08:42)
[2025-02-03] MEDS: COLACE PO (08:44)
--- NOTE | 2025-02-03 08:56 | W.PN.ID1 ---
Date of Service
Date of Service: February 03, 2025
Today's Communication
Continue ceftazidime as below.
DC planning to SNF.
Assessment / Plan
#Pseudomonas urinary tract infection
# Acute urinary retention requiring barrera
# Leukocytosis resolved
- Blood cultures negative
- Continue ceftazidime 2 g IV every 8 hours (d4) through 02/09/25
Home infusion sheet submitted to shoe caser
# Intertriginous candidiasis
-Continue fluconazole 100mg po daily through 02/09/25.
- Continue local wound care.
Additional Past Medical History:
Hypertension
HLD
CVA, R hemiplegia
Polycythemia
BPH
Amatory dysfunction
Sleep apnea
Depression
TURP
Mohs surgery on scalp
Chief Complaint
-: UTI
Subjective / Review of Systems
Feels better.
Vital Signs / Physical Exam
Vital Signs
Vital Signs
Temp Pulse Resp BP Pulse Ox
98.2 F 74 18 145/69 92
02/03/25 07:00 02/03/25 08:42 02/03/25 07:00 02/03/25 08:42 02/03/25 07:00
Physical Exam
Constitutional: No Acute Distress and Comfortable
Pulmonary: Clear
Gastrointestinal: Soft, Non Tender and Non Distended
Genito-Urinary: Negative CVA Tenderness
Neurological: AO x 3
Objective Data
Lab Data
Lab Results
02/03/25 04:26
02/03/25 04:26
Estimated Creat Clear 86 ml/min 02/03/25 04:26
Total Bilirubin 1.1 mg/dl (0.2-1.3) 01/28/25 14:10
AST 23 U/L (17-59) 01/28/25 14:10
ALT 16 U/L (0-50) 01/28/25 14:10
Alkaline Phosphatase 85 U/L (38-126) 01/28/25 14:10
Most recent labs reviewed.
Micro Results:
01/29/25 01:55 Blood Culture - Final
Blood/Venous No Growth - Final Report
01/28/25 23:35 Blood Culture - Final
Blood/Venous No Growth - Final Report
01/28/25 16:01 Urine Culture - Final
Urine Pseudomonas aeruginosa
Pseudomonas aeruginosa#2
01/28/25 21:45 MRSA Screen - Final
Nose No Methicillin Resistant Staphylococcus aureus isolated.
01/28/25 12:46 Influenza Types A & B ([facility]) - Final
Nasal Swab Negative for Influenza A & B, NAAT
Negative results must be combined with clinical observations
and patient history.
Nucleic Acid Amplification test (NAAT)performed on the
[employer] platform.
01/28/[address]: No evidence of pulmonary embolism. No significant acute abnormality identified in the chest, as described above.
Care Review
Plan reviewed with: Physician ()
--- NOTE | 2025-02-03 08:58 | W.DS.TRANS ---
DC Summary - Mis Manager
-
Discharge Instructions:
Discharge Diagnosis/Procedures Pseudomonas UTI, groin fungal rash, sacram
lesions/rash requiring outpatient dermatology
evaluation and biopsy. urinary retention
requiring Johnson
Diet Regular
Activity As tolerated
Other Services PT,OT
Instructions:
Stand-Alone Forms:
Changes to Home Medications: No
Discharge Medications:
DC Medications w/original date entered in [facility]
calcium polycarbophil 625 mg tablet (Fiber-Tabs) 625 mg PO BID Constipation 02/27/18
atorvastatin 40 mg tablet 40 mg PO HS High Cholesterol 07/01/18
docusate sodium 100 mg capsule 200 mg PO BID Constipation 09/17/19
hydroxyurea 500 mg capsule 1,000 mg PO HS Autoimmune Disorder 09/17/19
losartan 50 mg tablet 50 mg PO HS Blood Pressure 09/17/19
amlodipine 10 mg tablet 10 mg PO DAILY Blood Pressure 01/28/25
clopidogrel 75 mg tablet 75 mg PO DAILY Heart Disease/Condition 01/28/25
fluoxetine 20 mg capsule 20 mg PO DAILY Mental Health/Anxiety 01/28/25
ceftazidime 2 gram solution for injection (Tazicef) 2,000 mg IV Q8H #21 ea 02/03/25
cyanocobalamin (vitamin B-12) 1,000 mcg tablet (Vitamin B-12) 1,000 mcg PO DAILY #100 tabs 02/03/25
fluconazole 100 mg tablet 100 mg PO DAILY #7 tabs 02/03/25
miconazole nitrate 2 % topical powder (Miconazorb AF) 1 applic topical BID #85 grams 02/03/25
tamsulosin 0.4 mg capsule 0.4 mg PO HS #30 caps 02/03/25
Home Medication Changes
Pending Results: No
Total time spent discharging patient (in min): 41
--- NOTE | 2025-02-03 09:16 | CM ---
Pt cleared for discharge to [facility]. SNF AUTH obtained from [employer] - patient agreeable
IMM explained & signed. In chart.
Notified [facility] liaison [facility]
Auth appproval certification #: [id number]
start date 01/31/25, NRD 02/06/25
fax updates to [phone]
[facility] @ [facility] has been updated & has auth information
PLAN: [facility]
Report #: [phone]
Fax #: [phone]
[2025-02-03 12:16] VITALS: BP 157/65
== END 2025-02-03 12:40 | DRG 872 ==
LOC: 3 WEST ACU 08:57
PROVIDERS: Physician Assistant; ADMITTING PHYSICIAN Hospitalist; ATTENDING PHYSICIAN Internal Medicine; CONSULT PHYSICIAN Internal Medicine Infectious Disease; EMERGENCY PHYSICIAN Emergency Medicine; FAMILY PHYSICIAN Internal Medicine
DX: A41.9 Sepsis, unspecified organism (principal); N39.0 Urinary tract infection, site not specified; I69.351 Hemiplegia and hemiparesis following cerebral infarction affecting right dominant side; Z87.891 Personal history of nicotine dependence; Z11.52 Encounter for screening for COVID-19; Z66 Do not resuscitate; B36.9 Superficial mycosis, unspecified; I10 Essential (primary) hypertension; F32.A Depression, unspecified; Z68.31 Body mass index [BMI] 31.0-31.9, adult; E66.9 Obesity, unspecified; Z79.02 Long term (current) use of antithrombotics/antiplatelets; Z79.899 Other long term (current) drug therapy; Z99.3 Dependence on wheelchair; R06.89 Other abnormalities of breathing; R09.02 Hypoxemia
CPT/HCPCS: 71046; 71275; 74019; 80048; 80076; 81003; 81015; 82550; 82607; 83735; 84132; 84439; 84443; 84484; 85025; 85027; 87040; 87070; 87071; 87086; 87186; 87502; 87811; 93005; 96360; 97163; 97167; 97530; 99285; Q9967

== ENCOUNTER → 2025-04-20 16:03 | Outpatient (REF) | payer OTHER, SELFPAY ==
[2025-04-20 17:19] LABS: Urine Character Cloudy (Clear)
[2025-04-20 18:24] LABS: Urine Squamous Cell 0-2 /LPF (Few)
[2025-04-20 18:25] LABS: Urine Red Blood Cell 50-60 /HPF (0-2); Urine White Cell >100 /HPF (0-5)
== END ==
LOC: REG 16:03
PROVIDERS: ATTENDING PHYSICIAN Specialist; FAMILY PHYSICIAN Internal Medicine
DX: N39.0 Urinary tract infection, site not specified (principal)
CPT/HCPCS: 81003; 81015; 87086; 87147

== ENCOUNTER → 2025-05-08 13:55 | Outpatient (REF) | payer OTHER, SELFPAY | LOC: REG 13:55 | PROVIDERS: ATTENDING PHYSICIAN Specialist; FAMILY PHYSICIAN Internal Medicine | DX: N39.0 Urinary tract infection, site not specified (principal) | CPT/HCPCS: 87086; 87147; 87186 ==

== ENCOUNTER 2025-05-13 13:17 | Outpatient (RCR) | payer OTHER, SELFPAY ==
[2025-05-13 13:31] LABS: Hematocrit 46.2 % (39.0-52.0); Hemoglobin 15.5 g/dL (13.0-18.0); Mean Corp Hgb Conc. 33.5 g/dL (33.0-37.0); Mean Corpuscular Volume 112.1 fL (80.0-94.0); Platelet Count 410 10^3/uL (130-400); Red Cell Dist. Width 19.5 % (11.5-14.5)
[2025-05-13 13:35] VITALS: BP 126/70
[2025-05-13 13:50] VITALS: BP 116/66
[2025-05-13 14:00] VITALS: BP 117/70
[2025-05-13 14:17] LABS: Iron 82 ug/dl (49-181)
[2025-05-13 14:26] LABS: Total Iron Binding Capacity 248 ug/dl (261-462)
[2025-05-13 14:52] LABS: Ferritin 54.1 ng/ml (17.9-464.0)
== END 2025-06-05 23:59 | disposition home or self-care (01) ==
LOC: OID 13:17
PROVIDERS: ATTENDING PHYSICIAN Internal Medicine Hematology & Oncology; FAMILY PHYSICIAN Internal Medicine
DX: D45 Polycythemia vera (principal)
CPT/HCPCS: 36415; 82728; 83540; 83550; 85025; 99195